=== PATIENT | male | born 1960 | race Caucasian/White ===

== ENCOUNTER 2025-05-14 06:17 | Day surgery (SDC) | payer OTHER, SELFPAY ==
[2025-05-14 08:03] LABS: Glucose - Point of Care 125 mg/dl (70-99)
== END 2025-05-14 10:12 | disposition home or self-care (01) ==
LOC: GI 06:17
PROVIDERS: ATTENDING PHYSICIAN Internal Medicine
DX: Z12.11 Encounter for screening for malignant neoplasm of colon (principal); K57.30 Diverticulosis of large intestine without perforation or abscess without bleeding; R10.13 Epigastric pain; K22.89 Other specified disease of esophagus; K31.7 Polyp of stomach and duodenum; K29.70 Gastritis, unspecified, without bleeding; D12.3 Benign neoplasm of transverse colon; K29.50 Unspecified chronic gastritis without bleeding; K20.90 Esophagitis, unspecified without bleeding; Z86.0100 Personal history of colon polyps, unspecified
CPT/HCPCS: 43251; 45380; 43239; 82962; 88305; 88342